=== PATIENT | female | born 1950 | race Caucasian/White ===

== ENCOUNTER 2021-01-03 11:54 | Emergency (ER) | payer OTHER ==
[~2021-01-03] VITALS: Ht 160 cm; Wt 84.8 kg
[2021-01-03] MEDS ORDERED: PROP20TA7 PO (12:09)
--- NOTE | 2021-01-03 12:10 | NUR ---
Dr Lira at bedside for MSE in Room 2-B.
--- NOTE | 2021-01-03 14:30 | NUR ---
Knee immobilizer placed in L knee. tolerated well. Results are back and MD discussed everything with patient. Patient cleaared for discharged to home in stable condition. Written and verbal after care instructions given. Patient verbalizes understanding of instructions. Stressed follow up or return to ER for worsening s/s. Ambulated out of ED in steady gait.
[2021-01-03 14:37] VITALS: BP 100/63
== END 2021-01-03 14:52 | disposition home or self-care (01) ==
LOC: ER 11:59
DX: S09.90XA Unspecified injury of head, initial encounter (principal); S89.92XA Unspecified injury of left lower leg, initial encounter; V01.90XA Pedestrian on foot injured in collision with pedal cycle, unspecified whether traffic or nontraffic accident, initial encounter; Y93.01 Activity, walking, marching and hiking; Y92.414 Local residential or business street as the place of occurrence of the external cause; Y99.8 Other external cause status; E11.9 Type 2 diabetes mellitus without complications; Z88.2 Allergy status to sulfonamides; M17.12 Unilateral primary osteoarthritis, left knee
CPT/HCPCS: 70450; 72125; A4663